=== PATIENT | male | born 1950 | race Caucasian/White ===

== ENCOUNTER 2016-07-28 09:27 | Emergency (ER) | payer MEDICARE, OTHER ==
[~2016-07-28] VITALS: Ht 172.7 cm; Wt 81.6 kg
[2016-07-28] MEDS ORDERED: AMOXICILLIN500 MG ORAL (09:56)
[2016-07-28 10:04] VITALS: BP 127/84
--- NOTE | 2016-07-28 10:09 | Emergency Room Report ---
History of Present Illness General Chief Complaint: Earache Source: Patient, Caregiver Present Illness HPI 66YOM with 2 days of decreased hearing to right ear. Denies pain, fever/chills , drainage, external ear tenderness, diabetes. States in the past with similar symptoms, went to ED and had "a lot of wax removed." His placed drops last night for wax removal but no improvement in symptoms. Denies associated throat pain, headache, neck pain. Denies using Qtips to clean ears or placing other objects in ear. Allergies: Coded Allergies: No Known Allergies (Unverified , 07/28/16) Patient History Past Medical History: other Past Surgical History: none Pertinent Family History: none Social History: Denies: alcohol use, drug use, smoking Immunizations: UTD Reviewed Nursing Documentation: PMH: Agreed, PSxH: Agreed Nursing Documentation-PMH Past Medical History: No History, Except For Review of Systems All Other Systems: negative except mentioned in HPI Physical Exam Vital Signs Date Time Temp Pulse Resp B/P Pulse Ox O2 Delivery O2 Flow Rate FiO2 07/28/16 09:33 97.7 91 16 139/83 95 Room Air Sp02 EP Interpretation: reviewed, normal General Appearance: normal inspection, well appearing, no apparent distress, alert, GCS 15, non-toxic, other - Well appearing elderly gentleman in wheelchair Head: normocephalic, atraumatic Eyes: bilateral eye EOMI, bilateral eye PERRL ENT: normal ENT inspection, hearing grossly normal, normal pharynx, no angioedema, normal voice, uvula midline, moist mucus membranes, other - Left TM visualzied, clear. Right TM is erythematous, no white reflex. Not a significant amount of wax in either ear. 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 VSS. Afebrile. No otits externa or history of DM Systemically well Rx Amox PMD followup DC home Last Vital Signs Date Time Temp Pulse Resp B/P Pulse Ox O2 Delivery O2 Flow Rate FiO2 07/28/16 09:33 97.7 91 16 139/83 95 Room Air Status: improved Disposition: HOME, SELF-CARE Condition: Improved Scripts Amoxicillin* (AMOXIL*) 500 Mg Capsule 500 MG ORAL BID for 7 Days, #14 CAP Prov: POLO DAMON M.D. 07/28/16 Patient Instructions: Otitis Media, Adult POLO DAMON M.D. July 28, 2016 10:08
== END 2016-07-28 10:06 | disposition home or self-care (01) ==
LOC: EMR 09:40
DX: H91.91 Unspecified hearing loss, right ear (principal); H66.91 Otitis media, unspecified, right ear
CPT/HCPCS: 99283